=== PATIENT | female | born 1935 | race Caucasian/White ===

== ENCOUNTER 2016-05-30 11:10 | Observation (INO) | payer MEDICARE ==
[~2016-05-30] VITALS: Ht 157.5 cm; Wt 65.6 kg
[~2016-05-30 11:10] MED LIST: ALBU0.08; AMIT50TA3; AMLO5TAB2; BACL10TA; GABA100C4; HYDR200T3; HYDR25TA5; LEVO88TA2; LORA-373; MONT10TA4; PANT40TA3; VENTAER
[2016-05-30 12:00] VITALS: BP 142/86; PULSE 20; RESP 18; TEMP 98.2; O2SAT 97
[2016-05-30] MEDS ORDERED: FLUT1INH INH (12:00)
[2016-05-30] MEDS ORDERED: VENTAER INH (12:25)
[2016-05-30] MEDS ORDERED: AMIT50TA3 PO (12:26)
[2016-05-30] MEDS ORDERED: ALBU0.63 NEB (12:26)
[2016-05-30] MEDS ORDERED: AMLO5TAB2 PO (12:27)
[2016-05-30] MEDS ORDERED: BACL10TA PO (12:28)
[2016-05-30] MEDS ORDERED: GABA100C4 PO (12:29)
[2016-05-30] MEDS ORDERED: HYDR12.57 PO (12:30)
[2016-05-30] MEDS ORDERED: LEVO88TA2 PO (12:31)
[2016-05-30] MEDS ORDERED: LORA-373 PO (12:31)
[2016-05-30] MEDS ORDERED: MONT10TA4 PO (12:32)
[2016-05-30] MEDS ORDERED: HYDR200T3 PO (12:33)
[2016-05-30] MEDS ORDERED: PANT40TA3 PO (12:33)
[2016-05-30] MEDS ORDERED: HYDR-3583 PO (12:35)
[2016-05-30] MEDS ORDERED: VITA10002 PO (12:35)
[2016-05-30] MEDS ORDERED: VITA100064 PO (12:36)
[2016-05-30] MEDS ORDERED: K-TA10TA PO (12:36)
[2016-05-30] MEDS ORDERED: ONDANSETRON HCL 4 MG/2 ML VIAL IV PUSH ONE (12:58)
[2016-05-30] MEDS ORDERED: PROPOFOL 200 MG/20 ML AMP IV ONE (12:58)
[2016-05-30] MEDS ORDERED: LACTATED RINGER'S 1000 ML INJ 1,000 ML IV ONE (12:58)
[2016-05-30] MEDS ORDERED: LIDOCAINE 0.5%/EPINEPHrine 1:200,000 SOLN 50 ML VIAL ONE (13:02)
[2016-05-30] MEDS ORDERED: BUPIVACAINE/EPINEPHRINE 0.5% 50 ML VIAL ONE (13:05)
[2016-05-30] MEDS ORDERED: SUGAMMADEX SODIUM 200 MG/2 ML VIAL IV PUSH ONE ×2 (13:11)
[2016-05-30] MEDS ORDERED: ACETAMINOPHEN 1000 MG/100 ML VIAL IV ONE (13:11)
[2016-05-30] MEDS ORDERED: ARTIFICIAL TEARS OPTH OINT 3.5 APPLIC/3.5 GM TUBO ONE (13:12)
[2016-05-30] MEDS ORDERED: VANCOMYCIN HCL 1000 MG VIAL ONE (13:21)
[2016-05-30] MEDS ORDERED: SODIUM CHLOR 0.9% 250 ML INJ 250 ML ONE (13:21)
[2016-05-30] MEDS ORDERED: ceFAZolin 2 GM PREMIX 50 ML ONE (13:22)
[2016-05-30] MEDS: SODIUM CHLORID 0.9% 500 ML IV SCH (13:30)
[2016-05-30] MEDS ORDERED: LACTATED RINGER'S 1000 ML IV SCH (13:30)
[2016-05-30] MEDS ORDERED: METOPROLOL TARTRATE 25 MG TAB PO PRN (13:30)
[2016-05-30] MEDS ORDERED: INSULIN HUMAN REGULAR 1,000 UNITS/10 ML VIAL SQ PRN (13:30)
[2016-05-30] MEDS ORDERED: IOHEXOL 300 MG/ML 50 ML BTL (for RAD DIAG) IT ONE (13:45)
[2016-05-30] MEDS ORDERED: HYDR-3535 PO (15:37)
[2016-05-30] MEDS ORDERED: ACETAMINOPHEN/HYDROcodone 325 MG/10 MG TAB PO PRN ×3 (15:45)
[2016-05-30] MEDS ORDERED: SODIUM CHLORIDE 0.9% FLUSH 5 ML FLUSH IVF PRN (15:45)
[2016-05-30] MEDS ORDERED: MORPHINE SULFATE 4 MG/ML INJ IV PUSH PRN ×2 (15:45)
[2016-05-30] MEDS ORDERED: LORazepam 0.5 MG TAB PO PRN (15:45)
[2016-05-30] MEDS ORDERED: ALBUTEROL SULFATE 90 MCG/ACT HFA 8 GM INHALER INH PRN (15:45)
[2016-05-30] MEDS ORDERED: RESP: ALBUTEROL 0.63 MG/3 ML NEB (PRN) NEB (15:45)
[2016-05-30] MEDS ORDERED: ACETAMINOPHEN 325 MG TAB PO PRN (15:45)
--- NOTE | 2016-05-30 15:51 | PD.OP ---
Operative Report Date of Surgery: May 30, 2016 Preoperative Diagnosis: T8 compression fracture Postoperative Diagnosis: T8 compression fracture Procedure: t8 Kyphoplasty Anesthesia: general Surgeon: Mick Fenton Credit Card Associate(s): DENISA Operation and Findings: INDICATIONS FOR THE PROCEDURE Ms Recio is a 80 year-old female who presented with intractable pain related to a T8 compression fracture. She failed nonoperative management and a kyphoplasty was indicated as the most appropriate form of treatment. The [id number] details of the procedure, indications, alternatives, risks and potential complications were fully discussed with the patient. The patient fully understood. All The questions were answered. No guarantees were given. The patient voiced requesting the procedure and provided informed consents. The patient was offered the alternative of delaying the procedure and continuing with nonsurgical management. DETAILS OF THE SURGICAL PROCEDURE The patient was brought to the operating room and after the induction of general anesthesia, endotracheal intubation was performed. A Castellanos catheter and bilateral JASMIN hose and sequential compression devices were placed and kept throughout the procedure. The patient was positioned prone on the Hesham table over gel rods. All pressure points were carefully padded with egg crate mattress. The eyes were tapped shut after ointment was applied by the nesthesiologist to prevent corneal abrasion. A Glenroy hugger was placed over the expossed lower body to maintain control of the core body temperature. The lumbar region was prepped and draped in the usual sterile fashion. The C-arms were brought to the field and simultaneous AP and lateral x-rays were obtained. The levels were carefully counted and the pedicles of T8 were marked over the skin. An entry point was selected 1 centimeter superior and 1 centimeter lateral to the pedicle. Two small incisions were outlined on the skin and infiltrated with 1% lidocaine with epinephrine in 1:100 ,000 dilution. Initially, two small skin incisions were made with a #11 blade. Then, Jamshidi needles were carefully advanced to the entrance of the pedicle , and then into the vertebral body under continuous fluoroscopic guidance. K- wires were placed inside the vertebral body of and the needles were carefully removed. A drill was used to create a trough into the vertebral body to insert a cannula. Once the cannula was located through the pedicle, the drill was removed and bilateral balloons were inserted into the T8 vertebral body for vertebral augmentation. A careful expansion of the balloon under continuous fluoroscopic guidance and manometric evaluation allowed expansion of the vertebral body. Then, the balloons were deflated and carefully removed and the voids created in the vertebral body were filled with bone cement under fluoroscopic visualization. A very good expansion of the vertebral bodies was achieved with minimal extravasation of cement The cannulas were then removed. The incisions were closed using a single stitch at each incision. Dermabond was applied to the skin. At the end of the procedure, the sponge, needle, instrument counts correct. The estimated blood loss as minimal. No intraoperative complications occurred. The patient received prophylactic antibiotics. The patient was then extubated and transferred to the recovery room in stable condition. Mick Fenton MD May 30, 2016 15:51
--- NOTE | 2016-05-30 16:12 | RADRPT ---
EXAM DATE/TIME: 05/30/2016 15:42 [facility] COMPARISON: No previous studies available for comparison. INDICATIONS : Evaluate for foreign body post intubation, patient has several loose teeth, short of breath MEDICAL HISTORY : None. SURGICAL HISTORY : kyphoplasty ENCOUNTER: Initial ACUITY: 1 day PAIN SCORE: Non-responsive. LOCATION: Bilateral chest FINDINGS: A single view of the chest demonstrates minimal bibasilar densities. Large hiatal hernia. The cardiom ediastinal contours are unremarkable. Osseous structures are intact. CONCLUSION: Minimal bibasilar densities. Large hiatal hernia. Yovani Mcnulty MD on May 30, 2016 at 16:06 Board Certified Radiologist. This report was verified electronically.
[2016-05-30] MEDS ORDERED: DO NOT ADM ANY ANTICOAGULANT DRUGS XX PRN (16:15)
[2016-05-30] MEDS ORDERED: *morphine SULFATE 8 MG/ML PERIprocedure ONLY ONE (16:25)
[2016-05-30] MEDS: NS + KCL 20 MEQ INJ 1,000 ML IV SCH (16:30)
--- NOTE | 2016-05-30 16:31 | RADRPT ---
EXAM DATE/TIME: 05/30/2016 14:08 [facility] COMPARISON: No previous studies available for comparison. INDICATIONS : T8 Kyphoplasty. MEDICAL HISTORY : Unobtainable. SURGICAL HISTORY : Unobtainable. ENCOUNTER: Initial ACUITY: 1 day PAIN SCORE: Non-responsive. LOCATION: Thoracic. CONCLUSION: Kyphoplasty cement seen within what appears to be T8 vertebral body. There is superior and inferior t o T8 vertebral body. The majority of the cement is within the vertebral body. Yovani Mcnulty MD on May 30, 2016 at 16:28 Board Certified Radiologist. This report was verified electronically.
[2016-05-30] MEDS ORDERED: MIDAZOLAM HCL 2 MG/2 ML VIAL ONE (17:27)
[2016-05-30] MEDS: BACLOFEN 10 MG TAB PO SCH (18:00)
[2016-05-30 19:57] VITALS: BP 114/67; PULSE 85; RESP 18; TEMP 97.7; O2SAT 97
[2016-05-30] MEDS ORDERED: HYDROCHLOROTHIAZIDE 12.5 MG CAP PO SCH (21:00)
[2016-05-30] MEDS ORDERED: GABAPENTIN 100 MG CAP PO SCH (21:00)
[2016-05-30] MEDS ORDERED: AMITRIPTYLINE HCL 50 MG TAB PO SCH (21:00)
[2016-05-30 21:27] VITALS: O2SAT 97
[2016-05-30] MEDS: DOCUSATE SODIUM 100 MG CAP PO SCH (21:53)
[2016-05-30] MEDS: SODIUM CHLORIDE 0.9% FLUSH 5 ML FLUSH IVF SCH (21:55)
[2016-05-30] MEDS: ceFAZolin 2 GM PREMIX 50 ML IV SCH (21:56)
[2016-05-31 00:07] VITALS: BP 111/68; PULSE 94; RESP 17; TEMP 97.6; O2SAT 93
[2016-05-31] MEDS: NS + KCL 20 MEQ INJ 1,000 ML IV SCH ×2 (02:07→11:59)
[2016-05-31 04:09] VITALS: BP 149/79; PULSE 92; RESP 17; TEMP 97.6; O2SAT 94
[2016-05-31] MEDS: ceFAZolin 2 GM PREMIX 50 ML IV SCH (05:52)
[2016-05-31] MEDS ORDERED: LEVOTHYROXINE SODIUM 88 MCG TAB PO SCH (06:00)
[2016-05-31] MEDS: SODIUM CHLORID 0.9% 500 ML IV SCH (06:10)
[2016-05-31 07:41] VITALS: BP 121/74; PULSE 93; RESP 20; TEMP 97.1; O2SAT 91
[2016-05-31 08:36] VITALS: O2SAT 95
[2016-05-31] MEDS: SODIUM CHLORIDE 0.9% FLUSH 5 ML FLUSH IVF SCH (08:42)
[2016-05-31] MEDS: BACLOFEN 10 MG TAB PO SCH ×2 (08:44→12:37)
[2016-05-31] MEDS: DOCUSATE SODIUM 100 MG CAP PO SCH (08:44)
[2016-05-31] MEDS ORDERED: CHOLECALCIFEROL (VIT D3) 1000 UNIT TAB PO SCH (09:00)
[2016-05-31] MEDS ORDERED: HYDROXYCHLOROQUINE SULFATE 200 MG TAB PO SCH (09:00)
[2016-05-31] MEDS ORDERED: MONTELUKAST SODIUM 10 MG TAB PO SCH (09:00)
[2016-05-31] MEDS ORDERED: POTASSIUM CHLORIDE 10 MEQ CONTROLLED RELEASE TAB PO SCH (09:00)
[2016-05-31] MEDS ORDERED: PANTOPRAZOLE SOD 40 MG DELAYED RELEASE TAB PO SCH ×2 (09:00)
[2016-05-31] MEDS ORDERED: amLODIPine BESYLATE 5 MG TAB PO SCH (09:00)
[2016-05-31] MEDS ORDERED: CYANOCOBALAMIN 1,000 MCG TAB PO SCH (09:00)
[2016-05-31] MEDS ORDERED: FLUTICASONE 100 MCG/VILANTEROL 25 MCG INHALER INH SCH (09:00)
[2016-05-31 09:27] VITALS: O2SAT 93
--- NOTE | 2016-05-31 10:32 | HHI.DCPOC ---
Discharge Care Plan Diagnosis: (1) Status post kyphoplasty Goals to Promote Your Health * To prevent worsening of your condition and complications * To maintain your health at the optimal level Directions to Meet Your Goals Take your medications as prescribed Follow your dietary instruction Follow activity as directed Keep your appointments as scheduled Take your immunizations and boosters as scheduled If your symptoms worsen call your PCP, if no PCP go to Urgent Care Center or Emergency Room Smoking is Dangerous to Your Health. Avoid second hand smoke Call the 24-hour hour crisis hotline for domestic abuse at Stefania Reeves May 31, 2016 10:32
--- NOTE | 2016-05-31 10:46 | HHI.DS ---
Discharge Summary Admission Date May 30, 2016 at 15:35 Discharge Date: May 31, 2016 Admitting Diagnosis s/p kyphoplasty (1) Status post kyphoplasty ICD Code: Z98.890 Brief History Ms Recio is a 80 year-old female who presented with intractable pain related to a T8 compression fracture. She failed nonoperative management and a kyphoplasty was indicated as the most appropriate form of treatment. Imaging Last Impressions Thoracic Spine X-Ray 05/30/16 0000 Signed Impressions: Service Date/Time: Monday, May 30, 2016 14:08 - CONCLUSION: Kyphoplasty cement seen within what appears to be T8 vertebral body. There is superior and inferior to T8 vertebral body. The majority of the cement is within the vertebral body. Yovani Mcnulty MD Chest X-Ray 05/30/16 0000 Signed Impressions: Service Date/Time: Monday, May 30, 2016 15:42 - CONCLUSION: Minimal bibasilar densities. Large hiatal hernia. Yovani Mcnulty MD PE at Discharge Hospital Course Ms. Recio is a 80 year old female who underwent T8 Kyphoplasty on May 30, 2016 for compression fracture. Her surgery went well without complication. She will be discharged home in stable conditions. Activity restriction and wound care were discussed. Pt Condition on Discharge: Stable Discharge Disposition: Discharge Home Discharge Instructions DIET: Follow Instructions for: Heart Healthy Diet ACTIVITIES You can perform: Weight Bearing As [place] ADDITIONAL Activity Instructio: Avoid strenuous activities, heavy lifting, overhead activities, repetitive bending, twisting, pushing, pulling or any activities which might result in stress over the spine. Avoid situtation that will put at risk for falls. Use assistive device as needed for walking. Wear back brace when out of bed. New Medications: Hydrocodone-Acetaminophen (Lortab) 10-325 Mg Tab 1 TAB PO Q8HR PRN PAIN #62 TAB Continued Medications: Albuterol 18 GM Inh (Ventolin Hfa 18 GM Inh) 90 Mcg/Act Aer 2 PUFF INH Q4-6H PRN SHORTNESS OF BREATH #1 Ref 0 INHALER Albuterol Neb (Albuterol Neb) 0.63 Mg/3 Ml Neb 0.63 MG NEB QID NEB PRN SHORTNESS OF BREATH #125 Ref 0 NEBULE Amitriptyline (Amitriptyline) 50 Mg Tab 50 MG PO HS Control Depression #30 Ref 0 TAB Amlodipine (Amlodipine) 5 Mg Tab 5 MG PO DAILY Blood Pressure Management #30 Ref 0 TAB Baclofen (Baclofen) 10 Mg Tab 10 MG PO TID 1/2 tab MUSCLE SPASM Ref 0 TAB Cholecalciferol (Vitamin D) 1,000 Unit Tab 2000 UNITS PO DAILY Nutritional Supplement #1 Ref 0 BOTTLE Cyanocobalamin (Vitamin B-12) 1,000 Mcg Tab 1000 MCG PO DAILY Nutritional Supplement #1 Ref 0 BOTTLE Fluticasone-Vilanterol Inh (Breo Ellipta Inh) 100-25 Mcg/Act Inh 1 PUFF INH DAILY Use daily at the same time. #1 Ref 0 INHALER Gabapentin (Gabapentin) 100 Mg Cap 100 MG PO HS 200 mg HS #30 Ref 0 CAP Hydrochlorothiazide (Hydrochlorothiazide) 12.5 Mg Cap 12.5 MG PO HS #30 Ref 0 CAP Hydrocodone-Acetaminophen (Hydrocodone-Acetaminophen) 10-325 mg Tab 1 TAB PO Q6H PRN PAIN Ref 0 TAB Hydroxychloroquine (Hydroxychloroquine) 200 Mg Tab 200 MG PO DAILY Takw with food #30 Ref 0 TAB Levothyroxine (Levothyroxine) 88 Mcg Tab 88 MCG PO DAILY Thyroid #30 Ref 0 TAB Lorazepam (Lorazepam) 0.5 Mg Tab 0.5 MG PO HS PRN ANXIETY AND/OR INSOMNIA Ref 0 TAB Montelukast (Montelukast) 10 Mg Tab 10 MG PO DAILY #30 Ref 0 TAB Pantoprazole (Pantoprazole) 40 Mg Tab 40 MG PO DAILY Reflux #30 Ref 0 TAB Potassium Chloride ER (K-Tab) 10 Meq Tab 10 MEQ PO DAILY Electrolyte Replacement #30 Ref 0 TAB Stefania Reeves May 31, 2016 10:46
[2016-05-31 12:06] VITALS: BP 129/76; PULSE 106; RESP 20; TEMP 97.1; O2SAT 91
== END 2016-05-31 13:18 | disposition home or self-care (01) ==
LOC: HSDC 11:10 → HSDI 15:35 → N05B 18:29
PROVIDERS: ADMIT Neurological Surgery; ATTEND Neurological Surgery
DX: S22.068A Other fracture of T7-T8 thoracic vertebra, initial encounter for closed fracture (principal); E03.9 Hypothyroidism, unspecified; J45.909 Unspecified asthma, uncomplicated; J44.9 Chronic obstructive pulmonary disease, unspecified; I10 Essential (primary) hypertension; Z87.01 Personal history of pneumonia (recurrent); I25.10 Atherosclerotic heart disease of native coronary artery without angina pectoris; W19.XXXA Unspecified fall, initial encounter; Z79.51 Long term (current) use of inhaled steroids; Z88.8 Allergy status to other drugs, medicaments and biological substances
CPT/HCPCS: 01936; 22513; 71010; 72070; 94150; 97163; G0378; G8987; G8988; J0131; J0690; J2250; J2270; J2405; J3010; J3370; J3480; J7050; J7120; L0627; Q9967